=== PATIENT | female | born 1985 | race African-American/Black ===

== ENCOUNTER 2018-01-27 02:44 | Emergency (ER) | payer SELFPAY ==
[2018-01-27 02:50] VITALS: BP 126/83; PULSE 107; RESP 18; TEMP 98.6; O2SAT 100
[2018-01-27] MEDS ORDERED: MORPHINE SULFATE 4 MG/ML INJ IV PUSH ONE (04:15)
[2018-01-27] MEDS ORDERED: SODIUM CHLOR 0.9% 1000 ML INJ 1,000 ML IV ONE (04:15)
[2018-01-27] MEDS ORDERED: APIXABAN 5 MG TABLET PO ONE (04:15)
[2018-01-27 04:33] LABS: AUTOMATED NEUTROPHIL # 2.7 TH/MM3 (1.8-7.7); BASOPHIL # 0.1 TH/MM3 (0-0.2); BASOPHIL % 1.1 % (0.0-2.0); EOSINOPHIL # 0.1 TH/MM3 (0-0.4); EOSINOPHIL % 2.4 % (0.0-4.0); HEMOGLOBIN 10.4 GM/DL (11.6-15.3); LYMPH % 39.9 % (9.0-44.0); LYMPHOCYTE # 2.2 TH/MM3 (1.0-4.8); MEAN CORPUSCULAR HEMOGLOBIN 25.9 PG (27.0-34.0); MEAN CORPUSCULAR HGB CONC 31.6 % (32.0-36.0); MEAN PLATELET VOLUME 8.9 FL (7.0-11.0); MONO % 9.1 % (0.0-8.0); MONOCYTE # 0.5 TH/MM3 (0-0.9); NEUT % 47.5 % (16.0-70.0); PLATELET COUNT 324 TH/MM3 (150-450); RED BLOOD COUNT 4.02 MIL/MM3 (4.00-5.30); RED CELL DISTRIBUTION WIDTH 21.5 % (11.6-17.2); RETIC # 56.2 MIL/L (20.0-150.0); RETIC % 1.4 % (0.4-3.0); WHITE BLOOD COUNT 5.6 TH/MM3 (4.0-11.0)
[2018-01-27 04:55] LABS: ALBUMIN 3.4 GM/DL (3.4-5.0); ALT (GPT) 17 U/L (10-53); AST (GOT) 16 U/L (15-37); BICARBONATE 22.3 MEQ/L (21.0-32.0); BLOOD UREA NITROGEN 13 MG/DL (7-18); CALCIUM 8.3 MG/DL (8.5-10.1); CHLORIDE 112 MEQ/L (98-107); CREATININE 0.88 MG/DL (0.50-1.00); GLOMERULAR FILTRATION RATE 90 ML/MIN (>89); GLUCOSE,RANDOM 90 MG/DL (74-106); SODIUM (NA) 143 MEQ/L (136-145)
[2018-01-27 04:56] LABS: ALKALINE PHOSPHATASE 54 U/L (45-117); TOTAL BILIRUBIN ADULT 0.1 MG/DL (0.2-1.0); TOTAL PROTEIN 7.2 GM/DL (6.4-8.2)
[2018-01-27 05:01] LABS: SICKLE CELL SCREEN NEG (NEG)
--- NOTE | 2018-01-27 05:41 | PD ---
HPI Chief Complaint: Sickle Cell Time Seen by Provider: 03:54 Travel History International Travel<30 days: No Contact w/Intl Traveler<30days: No Traveled to known affect area: No History of Present Illness HPI Patient is a 32 year old female who comes in complaining of joint pain, which she says is typical of her sickle cell pain. She says she has history of sickle cell disease and lives in [place]. She says two weeks ago she was hospitalized in [place] and was diagnosed with a PE and required an exchange transfusion. She says that she did not take enough of her Eliquis with her, so she has not had it in 2 days. She says she is leaving to go home this afternoon. She denies any chest pain or SOB. She denies any injuries. She says she was taking Ketorolac for her pain without relief. She denies fever or chills. Severity is mild to moderate. PFSH Past Medical History Asthma: Yes Diminished Hearing: No Medical other: Yes (PROTIEN C DEFICENCY ) Sickle Cell Disease: Yes ?: Not Past Surgical History Surgical History: No Previous Surgery Social History Alcohol Use: No Tobacco Use: No Substance Use: No Allergies-Medications (Allergen,Severity, Reaction): Coded Allergies: Penicillins (Verified Allergy, Intermediate, 01/27/18) latex (Verified Allergy, Intermediate, 01/27/18) Review of Systems Except as stated in HPI: all other systems reviewed are Neg General / Constitutional: No: Fever, Chills HENT: No: Headaches, Lightheadedness Cardiovascular: No: Chest Pain or Discomfort Respiratory: No: Shortness of Breath Musculoskeletal: Positive: Myalgias, Arthralgias Neurologic: No: Weakness, Dizziness Physical Exam Narrative GENERAL: Awake and alert, in no acute distress. SKIN: Focused skin assessment warm/dry. HEAD: Atraumatic. Normocephalic. EYES: Pupils equal and round. No scleral icterus. No injection or drainage. ENT: Mucous membranes pink and moist. NECK: Trachea midline. No JVD. CARDIOVASCULAR: Regular rate and rhythm. No murmur appreciated. RESPIRATORY: No accessory muscle use. Clear to auscultation. Breath sounds equal bilaterally. GASTROINTESTINAL: Abdomen soft, non-tender, nondistended. MUSCULOSKELETAL: No obvious deformities. No clubbing. No cyanosis. No edema. NEUROLOGICAL: Awake and alert. No obvious cranial nerve deficits. Motor grossly within normal limits. Normal speech. PSYCHIATRIC: Appropriate mood and affect; insight and judgment normal. Data Data Last Documented VS Vital Signs Date Time Temp Pulse Resp B/P (MAP) Pulse Ox O2 Delivery O2 Flow Rate FiO2 01/27/18 02:50 98.6 107 18 126/83 (97) 100 Orders Orders Complete Blood Count With Diff (01/27/18 04:04) Comprehensive Metabolic Panel (01/27/18 04:04) Retic Count (01/27/18 04:04) Sickle Cell Screen (01/27/18 04:04) Sodium Chlor 0.9% 1000 Ml Inj (Ns 1000 M (01/27/18 04:15) Morphine Inj (Morphine Inj) (01/27/18 04:15) Apixaban (Eliquis) (01/27/18 04:15) Labs Laboratory Tests Test 01/27/18 04:15 White Blood Count 5.6 TH/MM3 Red Blood Count 4.02 MIL/MM3 Hemoglobin 10.4 GM/DL Hematocrit 33.0 % Mean Corpuscular Volume 82.0 FL Mean Corpuscular Hemoglobin 25.9 PG Mean Corpuscular Hemoglobin Concent 31.6 % Red Cell Distribution Width 21.5 % Platelet Count 324 TH/MM3 Mean Platelet Volume 8.9 FL Neutrophils (%) (Auto) 47.5 % Lymphocytes (%) (Auto) 39.9 % Monocytes (%) (Auto) 9.1 % Eosinophils (%) (Auto) 2.4 % Basophils (%) (Auto) 1.1 % Neutrophils # (Auto) 2.7 TH/MM3 Lymphocytes # (Auto) 2.2 TH/MM3 Monocytes # (Auto) 0.5 TH/MM3 Eosinophils # (Auto) 0.1 TH/MM3 Basophils # (Auto) 0.1 TH/MM3 CBC Comment DIFF FINAL Differential Comment Reticulocyte Count 1.4 % Absolute Reticulocyte Count 56.2 MIL/L Sickle Cell Screen NEG Blood Urea Nitrogen 13 MG/DL Creatinine 0.88 MG/DL Random Glucose 90 MG/DL Total Protein 7.2 GM/DL Albumin 3.4 GM/DL Calcium Level 8.3 MG/DL Alkaline Phosphatase 54 U/L Aspartate Amino Transf (AST/SGOT) 16 U/L Alanine Aminotransferase (ALT/SGPT) 17 U/L Total Bilirubin 0.1 MG/DL Sodium Level 143 MEQ/L Potassium Level 4.0 MEQ/L Chloride Level 112 MEQ/L Carbon Dioxide Level 22.3 MEQ/L Anion Gap 9 MEQ/L Estimat Glomerular Filtration Rate 90 ML/MIN MDM Medical Decision Making Medical Screen Exam Complete: Yes Emergency Medical Condition: Yes Differential Diagnosis sickle cell diseases vs anemia vs dehydration vs drug seeking Narrative Course Patient is a 32 year old female who comes in complaining of sickle cell pain. Exam shows no acute abnormalities. Labs sent show a Hgb of 10, Retic count of 1.4. Sickle cell prep is negative. Patient given one dose of pain medicine and IVF. She is advised to follow up with her doctor. It is unlikely she is having any crisis at this time. Diagnosis Primary Impression: Joint pain Qualified Codes: M25.50 - Pain in unspecified joint Patient Instructions: Arthralgia (ED), General Instructions Additional Instructions: Drink plenty of fluids. Follow up with your doctor. Disposition: 01 DISCHARGE HOME Condition: Stable Scarlett Estrada MD Jan 27, 2018 05:41
== END 2018-01-27 05:46 | disposition home or self-care (01) ==
LOC: NEPC 02:44
DX: M25.50 Pain in unspecified joint (principal); D57.1 Sickle-cell disease without crisis
CPT/HCPCS: 80053; 85025; 85044; 85660; 96361; 96374; 99284; J2270; J7030